=== PATIENT | male | born 1950 | race Caucasian/White ===

== ENCOUNTER 2018-09-19 21:09 | Inpatient (IN) | payer MEDICARE, MEDICAID ==
[~2018-09-19] VITALS: Ht 175.3 cm; Wt 99.8 kg
[2018-09-19 21:13] VITALS: BP 150/52
[2018-09-19] MEDS ORDERED: SINEMET 25-1001 EAC1 PO (21:19)
[2018-09-19] MEDS ORDERED: PLAVIX 75 MG TA75 M1 PO (21:21)
[2018-09-19] MEDS ORDERED: VALIUM5 MG PO (21:22)
[2018-09-19] MEDS ORDERED: PEPCID20 MG PO (21:22)
[2018-09-19] MEDS ORDERED: LISINOPRIL10 MG PO (21:22)
[2018-09-19] MEDS ORDERED: MELATONIN3 MG PO (21:23)
[2018-09-19] MEDS ORDERED: OLANZAPINE20 MG PO (21:24)
[2018-09-19] MEDS ORDERED: METFORMIN HCL500 MG PO (21:24)
[2018-09-19] MEDS ORDERED: PIOGLITAZONE30 MG PO (21:25)
[2018-09-19] MEDS ORDERED: SENNA8.6 MG PO (21:25)
[2018-09-19] MEDS ORDERED: MIRALAX17 GM PO (21:25)
[2018-09-19] MEDS ORDERED: THEREMS1 EAC1 PO (21:26)
[2018-09-19] MEDS ORDERED: ZOLOFT25 MG PO (21:26)
[2018-09-19] MEDS ORDERED: AMBIEN 5 MG TABL5 M1 PO (21:27)
[2018-09-19] MEDS ORDERED: VITAMIN D3400 UNIT PO (21:27)
[2018-09-19 21:42] LABS: ABSOLUTE EOSINOPHILS 0.2 thou/uL (0.0-0.7); ABSOLUTE LYMPHOCYTES 1.3 thou/uL (0.8-5.3); ABSOLUTE MONOCYTES 0.7 thou/uL (0.0-1.2); ABSOLUTE NEUTROPHILS 4.1 thou/uL (1.6-8.1); BASOPHILS 0.7 %; EOSINOPHILS 2.6 %; HEMATOCRIT 27.4 % (42.0-52.0); HEMOGLOBIN 9.4 gm/dL (14.0-18.0); LYMPHOCYTES 20.1 %; MCH 31.8 pg (26.0-34.0); MCHC 34.2 g/dL (28.0-37.0); MCV 92.7 fL (80.0-100.0); MONOCYTES 10.9 %; MPV 7.2 fl. (7.2-11.1); NUCLEATED RBCS 0 /100WBC; PLATELET COUNT* 278 thou/uL (150-400); POLYS 65.7 %; RBC 2.96 mil/uL (4.50-6.00); RDW-CV 13.3 % (10.5-14.5); WBC 6.3 thou/uL (4.0-11.0)
[2018-09-19 21:45] LABS: CALCIUM 8.2 mg/dL (8.5-10.1); CREATININE 1.4 mg/dL (0.6-1.3); POTASSIUM 4.6 mmol/L (3.5-5.1)
[2018-09-19 21:50] LABS: TOTAL BILIRUBIN 0.2 mg/dL (<0.1-1.0); TOTAL PROTEIN 6.7 g/dL (6.4-8.2)
[2018-09-19 22:01] LABS: URINE BILIRUBIN 1+ (Negative); URINE BLOOD 3+ (Negative); URINE CLARITY CLOUDY; URINE COLOR YELLOW; URINE GLUCOSE-RANDOM NEGATIVE (Negative); URINE KETONES NEGATIVE (Negative); URINE LEUKOCYTES-REFLEX 2+ (Negative); URINE NITRITE-REFLEX POSITIVE (Negative); URINE PROTEIN 3+ (Negative); URINE SPECIFIC GRAVITY >= 1.030 (1.005-1.030); URINE UROBILINOGEN 0.2 E.U./dl (0.2-1.0)
[2018-09-19 22:07] LABS: BACTERIA-REFLEX >30 Many /HPF (None Seen); SQUAMOUS NONE SEEN /LPF (0-3); URINE RBC >20 Many /HPF (0-2)
[2018-09-19 22:10] LABS: URINE WBC-REFLEX >25 Many /HPF (0-5)
[2018-09-19 22:11] LABS: CRYSTALS None Seen /LPF (None Seen); HYALINE CASTS 0-3 Few /LPF (None Seen); MUCUS None Seen strn/LPF (None Seen)
[2018-09-19 23:29] VITALS: BP 151/51
--- NOTE | 2018-09-20 00:04 | NUR ---
PT ARRIVED ON UNIT FROM ER AROUND 2340. ASSESSMENT COMPLETE. VITALS STABLE. BP 159/70, P 70, TEMP 98.2, OX 95% ON RA. PT RESTING IN BED. FALL PRECAUTIONS IN PLACE. CALL LIGHT IN REACH. WILL CONTINUE TO MONITOR.
--- NOTE | 2018-09-20 04:36 | NUR ---
PT REMAINED A&Ox4 THROUGHOUT SHIFT. IV IN L FA PATENT, INFUSING. CATHETER PATENT AND LEG BAG DRAINED, OUTPUT CHARTED. URINE WENT FROM DARK YELLOW UPON ARRIVING TO NOW LIGHT YELLOW. DENIED PAIN. DENIED NAUSEA. AMBIEN ORDERED DUE TO PT STATING THAT HE CANNOT SLEEP WITHOUT IT. RESTING IN BED PEACEFULLY. FALL PRECAUTIONS IN PLACE. HOURLY ROUNING COMPLETE. CALL LIGHT WITHIN REACH. WILL CONTINUE TO MONITOR.
[2018-09-20 08:00] VITALS: BP 167/74
[2018-09-20 13:36] LABS: CALCIUM 8.2 mg/dL (8.5-10.1); CREATININE 1.3 mg/dL (0.6-1.3); POTASSIUM 4.8 mmol/L (3.5-5.1)
[2018-09-20 14:09] LABS: % SATURATION 25 % (20-39); IRON 59 ug/dL (50-175)
[2018-09-20 15:24] VITALS: BP 144/72
--- NOTE | 2018-09-20 16:31 | NUR ---
PT IS ALERT AND ORIENTED X 4. IVF INFUSING @ 100 MLS/HR. PT RECEIVED IV ZOFRAN AND MORPHINE FOR LOWER ABDOMINAL PAIN AND NAUSEA. SCDS ON BILAT. PT HAS SUPRAPUBIC CATHETER WHICH WAS CHANGED OUT BY LYNDA FROM UROLOGY THIS AFTERNOON @ 1630. REFUSED SLIDING SCALE INSULIN FOR ACCUCHECK OF 127. PT REFUSED TO GET UP TO CHAIR DURING DAY. HOURING ROUNDS MAINTAINED. PT WILL USE CALL LIGHT FOR ASSISTANCE. CALL LIGHT WITHIN REACH.
--- NOTE | 2018-09-20 17:15 | NUR ---
SPOKE TO THE PATIENT TO DISCUSS HIS HOME SITUAON, DISCHARGE PLANNING, AND TO INFORM OF THE ROLE OF CM. PATIENT RESIDES AT [facility]. PATIENT ALERT, ORIENTED, AND INDEPENDENT WITH ADL'S. PATIENT USES 0 DME. PATIENT PLANS TO RETURN TO [facility] AT D/C. D/C LEAD HOUSEKEEPER SPOKE JEANNIE TIMMONS TO DISCUSS PATIENT. IAIN INFORMS THAT THE PATIENT HAS LIVED IN THE FACILITY FOR 4 YEARS, AND WILL ACCPET THE PATIENT BACK TO THE FACILITY AT D/C. IAIN ALSO CONFIRMS THAT THE PATIENT DOES NOT USE ANY DME FOR MOBILITY. CM WILL REMAIN AVAILABLE TO ASSIST AND FOLLOW NEEDED.
[2018-09-20 19:11] LABS: GLYCOHEMOGLOBIN (HGB A1C) 6.6 % (4.8-5.6)
[2018-09-20 19:23] LABS: URINE BILIRUBIN NEGATIVE (Negative); URINE BLOOD 3+ (Negative); URINE COLOR YELLOW; URINE GLUCOSE-RANDOM NEGATIVE (Negative); URINE KETONES NEGATIVE (Negative); URINE NITRITE-REFLEX NEGATIVE (Negative); URINE PROTEIN 2+ (Negative); URINE SPECIFIC GRAVITY 1.025 (1.005-1.030); URINE UROBILINOGEN 0.2 E.U./dl (0.2-1.0)
[2018-09-20 19:24] LABS: URINE CLARITY HAZY; URINE LEUKOCYTES-REFLEX 2+ (Negative)
[2018-09-20 19:36] LABS: SQUAMOUS 0-3 Few /LPF (0-3)
[2018-09-20 19:37] LABS: URINE RBC >20 Many /HPF (0-2); URINE WBC-REFLEX >25 Many /HPF (0-5)
[2018-09-20 19:38] LABS: AMORPHOUS URATES Few /LPF (None Seen); BACTERIA-REFLEX 1-9 Few /HPF (None Seen); CASTS None Seen /LPF (None Seen)
[2018-09-20 21:50] VITALS: BP 137/57
--- NOTE | 2018-09-21 04:31 | NUR ---
PT REMAINED A&Ox4 THROUGHOUT SHIFT. CODE STATUS CHANGED TO DNR PER PT REQUEST, ORDERED BY [facility]. DENIED INSULIN FOR BG LEVEL OF 115. IV IN L FA PATENT, INFUSING. CATHETER REMAINS PATENT, URINE LIGHT YELLOW. UP WITH A STAND BY ASSIST. PAIN CONTROLLED WITH MORPHINE. SLEPT WELL THROUGHOUT THE NIGHT. FALL PRECAUTIONS IN PLACE. HOURLY ROUNDING COMPLETE. CALL LIGHT WITHIN REACH. WILL CONTINUE TO MONITOR.
[2018-09-21 04:38] LABS: HEMOGLOBIN 9.8 gm/dL (14.0-18.0); MCH 31.7 pg (26.0-34.0); MCHC 33.7 g/dL (28.0-37.0); MCV 94.1 fL (80.0-100.0); MPV 7.2 fl. (7.2-11.1); RBC 3.08 mil/uL (4.50-6.00); WBC 6.1 thou/uL (4.0-11.0)
[2018-09-21 04:45] LABS: CALCIUM 8.4 mg/dL (8.5-10.1); CREATININE 1.3 mg/dL (0.6-1.3); POTASSIUM 4.7 mmol/L (3.5-5.1)
[2018-09-21 07:20] VITALS: BP 149/52
[2018-09-21] MEDS ORDERED: CEFUROXIME250 MG PO (08:00)
[2018-09-21 09:43] VITALS: BP 149/52
--- NOTE | 2018-09-21 09:54 | NUR ---
Pt discharging back to [facility] today, [facility] will corn picker between . Updated [facility] and faxed dc orders. Chart copied. Nurse report number provided, [phone]. CM attempted to contact both brothers that are listed as emergency contacts, one phone did not have a VM and the other was a females voice, so no message was left.
--- NOTE | 2018-09-21 11:54 | NUR ---
ASSUMED CARE OF PATIENT AT APPROX 0720. ALERT AND ORIENTED X4. ASSESSMENT COMPLETED AND CHARTED. VSS ON ROOM AIR. NO COMPLAINTS OF PAIN, NAUSEA, OR SOA. DR TODD SPOKE WITH PATIENT ABOUT DISCHARGING HIM TODAY. PATIENT HAS LOTS OF ANXIETY AND CALLED OUT ABOUT EVERY 20 MINUTES STATING THAT HE DID NOT WANT TO GO HOME TODAY AND WOULD RATHER STAY ANOTHER DAY. PATIENT BECAME ANGRY AND RUDE WHEN HE WAS INFORMED THAT HE WAS GOING HOME TODAY AND THE DOCTOR HAD NO CHANGED HIS MIND. PATIENT STATED THAT HE COULD NOT GO HOME BECAUSE HE HAD NOT BEEN UP IN 2 DAYS BECAUSE NO ONE WOULD GET HIM UP, PATIENT HAS BEEN REFUSING TO GET UP WHEN STAFF HAD TRIED. THIS NURSE ASKED WHY HE WAS AFRAID TO GO HOME, WHICH IS A [facility] FACILITY WHERE HE WOULD HAVE PLENTY OF HELP. HE SIMPLY STYATED BECAUSE HE HAD NOT BEEN UP HERE. THIS NURSE AND AN AID GOT THE PATIENT UP AND DRESSED WITH MINIMAL ASSISTANCE NEEDED, HE DID NOT CALL OUT AGAIN NCE HE WAS UP. PATIENT DISCHARGED AT 1145 BACK TO SKILLED FACILITY, TRANSPORT VIA WHEELCHAIR VAN. TOOK ALL PERSONAL BELONGINGS AND SICHARGE PACKET WITH SCRIPT.
== END 2018-09-21 11:45 | DRG 689 ==
LOC: M.ERS 21:09 → M.ORTHSURG 22:34 → M.TBA-ER 22:34 → M.ORTHSURG 23:35
PROVIDERS: Emergency Medicine; Internal Medicine; ADMIT Internal Medicine
DX: N30.90 Cystitis, unspecified without hematuria (principal); N17.0 Acute kidney failure with tubular necrosis; E87.1 Hypo-osmolality and hyponatremia; E44.0 Moderate protein-calorie malnutrition; G20 Parkinson's disease; F41.1 Generalized anxiety disorder; F32.9 Major depressive disorder, single episode, unspecified; E11.9 Type 2 diabetes mellitus without complications; I10 Essential (primary) hypertension; K59.00 Constipation, unspecified; G47.00 Insomnia, unspecified; H53.11 Day blindness; K21.9 Gastro-esophageal reflux disease without esophagitis; F17.210 Nicotine dependence, cigarettes, uncomplicated; D63.8 Anemia in other chronic diseases classified elsewhere; R33.8 Other retention of urine; Z68.32 Body mass index [BMI] 32.0-32.9, adult; Z79.899 Other long term (current) drug therapy

== ENCOUNTER 2019-05-30 05:40 | Emergency (ER) | payer MEDICARE, MEDICAID ==
[~2019-05-30] VITALS: Ht 175.3 cm; Wt 99.8 kg
[~2019-05-30 05:40] MED LIST: AMBIEN 5 MG TABL5 M1 PO; CEFUROXIME250 MG PO; LISINOPRIL10 MG PO; MELATONIN3 MG PO; METFORMIN HCL500 MG PO; MIRALAX17 GM PO; OLANZAPINE20 MG PO; PEPCID20 MG PO; PIOGLITAZONE30 MG PO; PLAVIX 75 MG TA75 M1 PO; SENNA8.6 MG PO; SINEMET 25-1001 EAC1 PO; THEREMS1 EAC1 PO; VALIUM5 MG PO; VITAMIN D3400 UNIT PO; ZOLOFT25 MG PO
[2019-05-30] MEDS ORDERED: DEPAKOTE500 MG PO (05:48)
[2019-05-30] MEDS ORDERED: OXYBUTYNIN 5 MG5 M2 PO (05:48)
[2019-05-30] MEDS ORDERED: APAP650 PO (05:49)
[2019-05-30] MEDS ORDERED: VITAMIN B-121000 MC3 PO (05:50)
[2019-05-30 06:06] LABS: ABSOLUTE EOSINOPHILS 0.3 thou/uL (0.0-0.7); ABSOLUTE LYMPHOCYTES 1.6 thou/uL (0.8-5.3); ABSOLUTE MONOCYTES 0.5 thou/uL (0.0-1.2); ABSOLUTE NEUTROPHILS 2.3 thou/uL (1.6-8.1); BASOPHILS 0.8 %; EOSINOPHILS 6.3 %; HEMATOCRIT 32.5 % (42.0-52.0); HEMOGLOBIN 10.8 gm/dL (14.0-18.0); MCH 31.7 pg (26.0-34.0); MCHC 33.1 g/dL (28.0-37.0); MCV 95.8 fL (80.0-100.0); MONOCYTES 10.7 %; MPV 7.6 fl. (7.2-11.1); NUCLEATED RBCS 0 /100WBC; PLATELET COUNT* 221 thou/uL (150-400); POLYS 49.2 %; RBC 3.39 mil/uL (4.50-6.00); RDW-CV 13.7 % (10.5-14.5); WBC 4.8 thou/uL (4.0-11.0)
[2019-05-30 06:26] LABS: CALCIUM 8.6 mg/dL (8.5-10.1); CREATININE 1.5 mg/dL (0.6-1.3); POTASSIUM 5.2 mmol/L (3.5-5.1)
[2019-05-30 06:31] LABS: ALBUMIN 3.3 g/dL (3.4-5.0); TOTAL BILIRUBIN 0.2 mg/dL (<0.1-1.0); TOTAL PROTEIN 6.9 g/dL (6.4-8.2)
[2019-05-30 08:40] VITALS: BP 193/69
--- NOTE | 2019-05-30 10:44 | EKG ---
[place] [address] ELECTROCARDIOGRAM REPORT Name: NAIN GRANT [id number] Admission: 05/30/19 Attend Phys: Discharge: 05/30/19 Date of : 52 Report #: [id number] THIS REPORT FOR: //name// [facility] ED Test Date: 2019-05-30 Test Time: 05:57:16 Pat Name: NAIN GRANT Department: Room: Gender: M Recordist: ANDRESSA : 1950 Requested By: Jose Rafael Hurley Order Number: [id number] MD: Ke Morales Measurements Intervals [place] Rate: 57 P: 5 GA: 218 QRS: -2 QRSD: 92 T: 62 QT: 426 QTc: 415 Interpretive Statements Sinus rhythm Borderline prolonged GA interval Baseline wander in lead(s) V2 No previous ECG available for comparison Electronically Signed On 05-30-2019 10:43:43 CDT by Ke Morales [email or web address] <ELECTRONICALLY SIGNED> By: Ke Morales MD, [facility] 05/30/19 [phone] [id number] Ke Morales MD, FACC /EPI
== END 2019-05-30 08:40 | disposition home or self-care (01) ==
LOC: M.ERS 05:40
PROVIDERS: Family Medicine
DX: E87.5 Hyperkalemia (principal); G20 Parkinson's disease; I10 Essential (primary) hypertension; E11.9 Type 2 diabetes mellitus without complications; G47.00 Insomnia, unspecified; K21.9 Gastro-esophageal reflux disease without esophagitis; Z86.2 Personal history of diseases of the blood and blood-forming organs and certain disorders involving the immune mechanism

== ENCOUNTER 2019-06-12 03:51 | Inpatient (IN) | payer MEDICARE, MEDICAID ==
[~2019-06-12] VITALS: Ht 175.3 cm; Wt 97.5 kg
[~2019-06-12 03:51] MED LIST changes: +APAP650 PO; +DEPAKOTE500 MG PO; +OXYBUTYNIN 5 MG5 M2 PO; +VITAMIN B-121000 MC3 PO
[2019-06-12 03:53] VITALS: BP 150/56
[2019-06-12] MEDS ORDERED: SERTRALINE HCL100 MG PO (04:08)
[2019-06-12 04:25] LABS: URINE BILIRUBIN NEGATIVE (Negative); URINE BLOOD 3+ (Negative); URINE COLOR DARK YELLOW; URINE GLUCOSE-RANDOM NEGATIVE (Negative); URINE KETONES TRACE (Negative); URINE NITRITE-REFLEX NEGATIVE (Negative); URINE PROTEIN 3+ (Negative); URINE SPECIFIC GRAVITY 1.025 (1.005-1.030); URINE UROBILINOGEN 0.2 E.U./dl (0.2-1.0)
[2019-06-12 04:26] LABS: URINE CLARITY SL CLOUDY; URINE LEUKOCYTES-REFLEX 2+ (Negative)
[2019-06-12 04:27] LABS: AMORPHOUS URATES Moderate /LPF (None Seen); BACTERIA-REFLEX >30 Many /HPF (None Seen); HYALINE CASTS 0-3 Few /LPF (None Seen); MUCUS 4-6 Moderate strn/LPF (None Seen); SQUAMOUS 0-3 Few /LPF (0-3); URINE RBC >20 Many /HPF (0-2); URINE WBC-REFLEX >25 Many /HPF (0-5); WBC CLUMPS Few (None Seen); YEAST-REFLEX Present (None Seen)
[2019-06-12 04:58] LABS: ABSOLUTE EOSINOPHILS 0.3 thou/uL (0.0-0.7); ABSOLUTE LYMPHOCYTES 1.8 thou/uL (0.8-5.3); ABSOLUTE MONOCYTES 0.7 thou/uL (0.0-1.2); ABSOLUTE NEUTROPHILS 2.6 thou/uL (1.6-8.1); BASOPHILS 0.9 %; EOSINOPHILS 6.3 %; HEMATOCRIT 28.3 % (42.0-52.0); HEMOGLOBIN 9.6 gm/dL (14.0-18.0); LYMPHOCYTES 32.7 %; MCH 32.1 pg (26.0-34.0); MCHC 33.7 g/dL (28.0-37.0); MCV 95.3 fL (80.0-100.0); MONOCYTES 12.1 %; MPV 7.3 fl. (7.2-11.1); NUCLEATED RBCS 0 /100WBC; PLATELET COUNT* 220 thou/uL (150-400); RBC 2.97 mil/uL (4.50-6.00); RDW-CV 13.3 % (10.5-14.5); WBC 5.5 thou/uL (4.0-11.0)
[2019-06-12 05:09] LABS: CALCIUM 8.3 mg/dL (8.5-10.1); CREATININE 1.6 mg/dL (0.6-1.3); POTASSIUM 4.5 mmol/L (3.5-5.1)
[2019-06-12 05:14] LABS: ALBUMIN 3.1 g/dL (3.4-5.0); TOTAL BILIRUBIN 0.2 mg/dL (<0.1-1.0); TOTAL PROTEIN 6.6 g/dL (6.4-8.2)
[2019-06-12 05:43] VITALS: BP 150/56
[2019-06-12 05:50] VITALS: BP 117/66
[2019-06-12 09:41] VITALS: BP 102/66
[2019-06-12 15:52] VITALS: BP 147/47
[2019-06-12 19:40] VITALS: BP 170/63
[2019-06-13 05:23] LABS: HEMOGLOBIN 9.9 gm/dL (14.0-18.0); MCH 31.8 pg (26.0-34.0); MCV 96.3 fL (80.0-100.0); MPV 7.9 fl. (7.2-11.1); RBC 3.11 mil/uL (4.50-6.00); RDW-CV 13.4 % (10.5-14.5); WBC 5.1 thou/uL (4.0-11.0)
[2019-06-13 05:42] LABS: CALCIUM 8.2 mg/dL (8.5-10.1); CREATININE 1.3 mg/dL (0.6-1.3); MAGNESIUM 1.9 mg/dL (1.8-2.4)
[2019-06-13 11:22] VITALS: BP 167/66
[2019-06-13 16:00] VITALS: BP 149/55
[2019-06-13 19:50] VITALS: BP 163/73
[2019-06-14] MEDS ORDERED: LEVSIN-SL0.125 MG SUBLING (09:15)
[2019-06-14] MEDS ORDERED: CEFUROXIME500 MG PO (09:15)
[2019-06-14] MEDS ORDERED: CULTURELLE KID1 EAC1 PO (09:15)
[2019-06-14 13:35] VITALS: BP 173/65
[2019-06-14 15:40] LABS: URINE BILIRUBIN NEGATIVE (Negative); URINE BLOOD 3+ (Negative); URINE CLARITY CLEAR; URINE COLOR YELLOW; URINE GLUCOSE-RANDOM NEGATIVE (Negative); URINE KETONES NEGATIVE (Negative); URINE LEUKOCYTES 3+ (Negative); URINE NITRITE NEGATIVE (Negative); URINE PROTEIN NEGATIVE (Negative); URINE UROBILINOGEN 0.2 E.U./dl (0.2-1.0)
[2019-06-14 15:50] LABS: MUCUS None Seen strn/LPF (None Seen); SQUAMOUS NONE SEEN /LPF (0-3)
[2019-06-14 15:51] LABS: CASTS None Seen /LPF (None Seen); URINE WBC >25 Many /HPF (0-5)
[2019-06-14 15:52] LABS: BACTERIA 1-9 Few /HPF (None Seen); CRYSTALS None Seen /LPF (None Seen)
[2019-06-14 15:53] LABS: URINE RBC 3-10 Few /HPF (0-2); YEAST Present (None Seen)
[2019-06-14] MEDS ORDERED: PYRIDIUM200 MG PO (16:24)
[2019-06-14 16:46] VITALS: BP 173/65
== END 2019-06-14 16:47 | DRG 699 ==
LOC: M.ERS 03:51 → M.TBA-ER 05:07 → M.3W 05:07
PROVIDERS: Emergency Medicine; Internal Medicine; ADMIT Internal Medicine
PROC: 0TPB70Z Removal of Drainage Device from Bladder, Via Natural or Artificial Opening (ICD-10-PCS; principal; 2019-06-12)
DX: T83.510A Infection and inflammatory reaction due to cystostomy catheter, initial encounter (principal); E44.1 Mild protein-calorie malnutrition; N39.0 Urinary tract infection, site not specified; I69.354 Hemiplegia and hemiparesis following cerebral infarction affecting left non-dominant side; T83.090A Other mechanical complication of cystostomy catheter, initial encounter; G20 Parkinson's disease; F41.1 Generalized anxiety disorder; G47.00 Insomnia, unspecified; K21.9 Gastro-esophageal reflux disease without esophagitis; R31.9 Hematuria, unspecified; E11.22 Type 2 diabetes mellitus with diabetic chronic kidney disease; N18.3 Chronic kidney disease, stage 3 (moderate); I12.9 Hypertensive chronic kidney disease with stage 1 through stage 4 chronic kidney disease, or unspecified chronic kidney disease; F17.210 Nicotine dependence, cigarettes, uncomplicated; Y84.6 Urinary catheterization as the cause of abnormal reaction of the patient, or of later complication, without mention of misadventure at the time of the procedure; N31.9 Neuromuscular dysfunction of bladder, unspecified; R53.81 Other malaise; E11.69 Type 2 diabetes mellitus with other specified complication; F02.80 Dementia in other diseases classified elsewhere, unspecified severity, without behavioral disturbance, psychotic disturbance, mood disturbance, and anxiety; F31.9 Bipolar disorder, unspecified; B95.7 Other staphylococcus as the cause of diseases classified elsewhere; N40.0 Benign prostatic hyperplasia without lower urinary tract symptoms; Z79.899 Other long term (current) drug therapy; Y92.89 Other specified places as the place of occurrence of the external cause; Z68.31 Body mass index [BMI] 31.0-31.9, adult

== ENCOUNTER 2020-01-24 20:48 | Inpatient (IN) | payer MEDICARE, MEDICAID ==
[~2020-01-24] VITALS: Ht 175.3 cm; Wt 99.3 kg
[~2020-01-24 20:48] MED LIST changes: +CEFUROXIME500 MG PO; +CULTURELLE KID1 EAC1 PO; +LEVSIN-SL0.125 MG SUBLING; +PYRIDIUM200 MG PO; +SERTRALINE HCL100 MG PO
[2020-01-24 20:49] VITALS: BP 144/81
[2020-01-24] MEDS ORDERED: LIPITOR10 MG PO (21:00)
[2020-01-24] MEDS ORDERED: KRISTALOSE20 GM PO (21:03)
[2020-01-24] MEDS ORDERED: LISINOPRIL2.5 MG PO (21:04)
[2020-01-24] MEDS ORDERED: PROTONIX 20 MG20 MG PO (21:08)
[2020-01-24 21:27] LABS: ABSOLUTE LYMPHOCYTES 0.6 thou/uL (0.8-5.3); ABSOLUTE MONOCYTES 0.4 thou/uL (0.0-1.2); ABSOLUTE NEUTROPHILS 5.2 thou/uL (1.6-8.1); BASOPHILS 0.2 %; EOSINOPHILS 0.2 %; HEMOGLOBIN 10.6 gm/dL (14.0-18.0); MCH 33.4 pg (26.0-34.0); MCHC 34.1 g/dL (28.0-37.0); MCV 97.9 fL (80.0-100.0); MONOCYTES 6.9 %; MPV 8.3 fl. (7.2-11.1); NUCLEATED RBCS 0 /100WBC; PLATELET COUNT* 202 thou/uL (150-400); POLYS 82.7 %; RBC 3.17 mil/uL (4.50-6.00); RDW-CV 13.9 % (10.5-14.5); WBC 6.2 thou/uL (4.0-11.0)
[2020-01-24 21:36] LABS: CALCIUM 7.9 mg/dL (8.5-10.1); CREATININE 1.6 mg/dL (0.6-1.3)
[2020-01-24 21:38] LABS: INR 1.1; PROTIME 11.3 Seconds (9.20-11.50)
[2020-01-24 21:47] LABS: ALBUMIN 3.4 g/dL (3.4-5.0); MAGNESIUM 3.5 mg/dL (1.8-2.4); TOTAL BILIRUBIN 0.2 mg/dL (<0.1-1.0); TOTAL PROTEIN 7.6 g/dL (6.4-8.2)
--- NOTE | 2020-01-24 21:56 | NUR ---
INCREASED D5 .45 TO 200ML/HR PER DR. REYNAGA.
--- NOTE | 2020-01-24 23:40 | NUR ---
D10 NS 1000ML WAS STARTED AT 150ML/HR PER DR. REYNAGA'S ORDERS. MEDICATION WAS NOT ABLE TO BE SCANNED
[2020-01-25] VITALS (22 sets, daily range): BP systolic 97–157; BP diastolic 43–66
[2020-01-25 00:10] LABS: BE -0.9 mmol/L (-2 to +3); PCO2 49.1 mmHg (35.0-45.0); PO2 91.4 mmHg (75.0-100.0)
[2020-01-25 02:31] LABS: CALCIUM 7.7 mg/dL (8.5-10.1); CREATININE 1.4 mg/dL (0.6-1.3); POTASSIUM 4.7 mmol/L (3.5-5.1)
--- NOTE | 2020-01-25 06:00 | NUR ---
PATIENT ARRIVED ON UNIT AT APPROX 0115. ALERT AND ORIENTED TIMES FOUR. CRANKY AND STATED THAT HE IS GOING HOME IN THE AM. NO COMPLAINTS OF PAIN OR DISCOMFORT NOTED. REMAINS ACCUCHECK QH R/T UNSTABLE BLOOD GLUCOSE. UNABLE TO TITRATE D10NS BLOOD GLUCOSE CONTINUES TO DROP. SWITCHBOARD INSPECTOR ASSESSMENT COMPLETED CHARTED. WILL CONTINUE TO MONITOR
[2020-01-25 06:01] LABS: CALCIUM 7.4 mg/dL (8.5-10.1); CREATININE 1.2 mg/dL (0.6-1.3); POTASSIUM 4.6 mmol/L (3.5-5.1)
[2020-01-25 09:51] LABS: URINE BLOOD TRACE (Negative); URINE CLARITY CLEAR; URINE COLOR STRAW; URINE GLUCOSE-RANDOM NEGATIVE (Negative); URINE KETONES NEGATIVE (Negative); URINE LEUKOCYTES 3+ (Negative); URINE NITRITE POSITIVE (Negative); URINE PROTEIN NEGATIVE (Negative); URINE SPECIFIC GRAVITY <= 1.005 (1.005-1.030); URINE UROBILINOGEN 0.2 E.U./dl (0.2-1.0)
[2020-01-25 09:53] LABS: ICTOTEST (BILI CONFIRMATORY) Negative (Negative); URINE BILIRUBIN 1+ (Negative)
[2020-01-25 09:59] LABS: SQUAMOUS 0-3 Few /LPF (0-3); WBC CLUMPS Few (None Seen)
[2020-01-25 10:00] LABS: CASTS None Seen /LPF (None Seen); MUCUS None Seen strn/LPF (None Seen); URINE RBC 0-2 Rare /HPF (0-2)
[2020-01-25 10:01] LABS: CRYSTALS None Seen /LPF (None Seen)
--- NOTE | 2020-01-25 11:09 | EKG ---
[place] [address] ELECTROCARDIOGRAM REPORT Name: NAIN GRANT Room: [address] ADM IN M.R.#: [id number] Admission: 01/24/20 Attend Phys: Paul Jerez, Discharge: Date of : 52 Date of Service: 01/24/202046 Report #: [id number] THIS REPORT FOR: //name// [facility] ED Test Date: 2020-01-24 Test Time: 20:47:59 Pat Name: NAIN GRANT Department: Room: [facility] Gender: M Independent Freight Agent: [place] : 1950 Requested By: Eleanor Jamison Order Number: [id number] MD: Jatinder Cesar Measurements Intervals [place] Rate: 76 P: 31 MT: 210 QRS: 6 QRSD: 103 T: 35 QT: 401 QTc: 451 Interpretive Statements Sinus rhythm Compared to ECG 05/30/2019 05:57:16 No significant changes Electronically Signed On 01-25-2020 11:07:16 CDT by Jatinder Cesar [email or web address] <ELECTRONICALLY SIGNED> By: Jatinder Cesar MD, [facility] 01/25/20 1107 46 46 Jatinder Cesar MD, [facility] /EPI
--- NOTE | 2020-01-25 18:29 | NUR ---
pt progressed toward goals during shift after 4 amps of D50 onetime im glucagon and d10 running at 150ml sugars have maintained in the lower 100s pt stated he felt much better than this morning consumer all of lunch and dinner ready to go home he states covid still pending
[2020-01-26] VITALS (13 sets, daily range): BP systolic 94–159; BP diastolic 44–61
[2020-01-26 03:22] LABS: ABSOLUTE EOSINOPHILS 0.2 thou/uL (0.0-0.7); ABSOLUTE LYMPHOCYTES 2.1 thou/uL (0.8-5.3); ABSOLUTE MONOCYTES 0.9 thou/uL (0.0-1.2); ABSOLUTE NEUTROPHILS 4.9 thou/uL (1.6-8.1); BASOPHILS 0.4 %; EOSINOPHILS 2.5 %; HEMATOCRIT 30.1 % (42.0-52.0); HEMOGLOBIN 10.3 gm/dL (14.0-18.0); MCH 33.2 pg (26.0-34.0); MCV 97.6 fL (80.0-100.0); MONOCYTES 10.7 %; MPV 8.7 fl. (7.2-11.1); NUCLEATED RBCS 0 /100WBC; PLATELET COUNT* 191 thou/uL (150-400); POLYS 60.4 %; RBC 3.09 mil/uL (4.50-6.00); RDW-CV 14.1 % (10.5-14.5); WBC 8.1 thou/uL (4.0-11.0)
[2020-01-26 03:29] LABS: CALCIUM 7.1 mg/dL (8.5-10.1); CREATININE 1.5 mg/dL (0.6-1.3); POTASSIUM 5.3 mmol/L (3.5-5.1)
[2020-01-26 04:07] LABS: GLYCOHEMOGLOBIN (HGB A1C) 5.8 % (4.8-5.6)
--- NOTE | 2020-01-26 06:19 | NUR ---
ASSUMED PATIENT CARE AT 1900. PATIENT ALERT AND ORIENTED TIMES FOUR. NO COMPLAINTS OF PAIN OR DISCOMFORT NOTED. HUMID SYSTEM OPERATOR COMPLETED DOCUMENTED. BLOOD SUGARS STAYED IN THE LOW HUNDREDS UNTIL NOVROX 419 AT WHICH TIME HE IS STARTING TO TREND DOWN AGAIN. D10 FLUIDS CONTINUE TO RUN AT 150ML/HR. VALIUM NOT GIVEN PATIENT WAS LETHARGIC THROUGHOUT SHIFT.
--- NOTE | 2020-01-26 10:21 | NUR ---
PT PROGRESSED TOWARD GOALS DOWNGRADED TO [place] TRANSFERRED TO ROOM 212 VIA WHEELCHAIR BY NURSING STAFF ALL BELONGINGS PACKED AND SENT WITH PATIENT WALLET IN PATIENTS BACK POCKET REFUSES TO GIVE TO SECRUITY WANTS TO KEEP IT ON HIM
--- NOTE | 2020-01-26 15:46 | NUR ---
ICU rounds: Pt out of ICU today, tele status. Pt is a LTC resident at [facility] and plans to return at [facility]. CM spoke with Anai at [facility], they are able to accept Pt at dc. Independent. No DME. Following.
--- NOTE | 2020-01-26 18:00 | NUR ---
RECEIVED REPORT FROM BELIA IN ICU. PT ARRIVED TO TELE FLOOR AROUND 1025. PT A&O X4. THIS RN AGREES WITH THE ASSESSMENT AND CHARTING OF BELIA DHILLON. HOUSE MOVER SUPERVISOR PLACED TRACING CHARTED. PT WITH GOOD APPETITE. BLOOD GLUCOSE CHECKS Q2HRS, STABALIZING. JANSEN IN PLACE TO DD. PT DENIED PAIN OR DISCOMFORT THIS SHIFT. MEDS PER EMAR. PT CURRENTLY RESTING IN BED WATCHING TV. FALL PRECAUTIONS IN PLACE. HOURLY ROUNDING PERFORMED. CALL LIGHT WITHIN REACH.
--- NOTE | 2020-01-27 04:20 | NUR ---
ASSUMED PT CARE AT 1910. NURSING ASSESSMENT COMPLETED AT START OF SHIFT. PT TRACING SR ON BELT WORKER. PT VOICED NO CONCERNS THIS SHIFT. SUPRAPUBIC JANSEN IN PLACE. UP TO BSC X2 ASSIST WITH GAITBELT THIS SHIFT. HOURLY ROUNDING COMPLETED.Q2H REPOSITIONING COMPLETED. CALL LIGHT WITHIN REACH.
[2020-01-27 04:42] VITALS: BP 132/49
[2020-01-27 06:12] LABS: ABSOLUTE BASOPHILS 0.1 thou/uL (0.0-0.2); ABSOLUTE EOSINOPHILS 0.3 thou/uL (0.0-0.7); ABSOLUTE LYMPHOCYTES 1.7 thou/uL (0.8-5.3); ABSOLUTE MONOCYTES 0.9 thou/uL (0.0-1.2); BASOPHILS 0.9 %; EOSINOPHILS 4.7 %; HEMATOCRIT 26.8 % (42.0-52.0); HEMOGLOBIN 9.2 gm/dL (14.0-18.0); LYMPHOCYTES 24.7 %; MCH 33.6 pg (26.0-34.0); MCHC 34.5 g/dL (28.0-37.0); MCV 97.4 fL (80.0-100.0); MONOCYTES 12.8 %; MPV 8.5 fl. (7.2-11.1); NUCLEATED RBCS 0 /100WBC; PLATELET COUNT* 186 thou/uL (150-400); POLYS 56.9 %; RBC 2.75 mil/uL (4.50-6.00); RDW-CV 13.9 % (10.5-14.5); WBC 6.9 thou/uL (4.0-11.0)
[2020-01-27 06:22] LABS: CALCIUM 7.4 mg/dL (8.5-10.1); CREATININE 1.5 mg/dL (0.6-1.3); POTASSIUM 5.3 mmol/L (3.5-5.1)
--- NOTE | 2020-01-27 07:10 | NUR ---
CHANGE OF SHIFT BESIDE REPORT GIVEN PATIENT SEEN AT BEDSIDE, IN BED ASLEEP ASSUMED PATIENT CARE
[2020-01-27 08:00] VITALS: BP 124/46
--- NOTE | 2020-01-27 09:57 | NUR ---
Pt discharging back to [facility] today, they plan to skill Pt. Awaiting confirmation on grain picker time. Faxed dc orders. Chart copied. Nurse report number is [phone]. CM to update Pt's family.
[2020-01-27 11:30] VITALS: BP 137/48
[2020-01-27 13:07] VITALS: BP 137/48
[2020-01-27] MEDS ORDERED: THEREMS-M1 EACH PO (13:07)
--- NOTE | 2020-01-27 14:10 | NUR ---
PATIENT DISCHARGED TO [facility] DISCHARGE IFORMATION GIVE, ACKNOWLEDGED, COPIES SENT IV AND HEART MONITOR REMOVED PERSONAL BELOGNIGS SENT PATIENT ASSISTED OUT VIA WC VAN REPORT GIVEN TO GIAN AT [facility]
== END 2020-01-27 13:50 | DRG 637 ==
LOC: M.ERS 20:48 → M.TBA-ER 23:05 → M.2W 23:38 → M.ICU 23:38 → M.TBA-ER 23:38 → M.ICU 01-25 00:58 → M.2W 01-26 10:48
PROVIDERS: Emergency Medicine; ADMIT Internal Medicine
DX: E11.649 Type 2 diabetes mellitus with hypoglycemia without coma (principal); G93.41 Metabolic encephalopathy; J18.9 Pneumonia, unspecified organism; E87.1 Hypo-osmolality and hyponatremia; I69.354 Hemiplegia and hemiparesis following cerebral infarction affecting left non-dominant side; N39.0 Urinary tract infection, site not specified; N17.9 Acute kidney failure, unspecified; T38.3X5A Adverse effect of insulin and oral hypoglycemic [antidiabetic] drugs, initial encounter; G20 Parkinson's disease; F41.1 Generalized anxiety disorder; F32.9 Major depressive disorder, single episode, unspecified; G47.00 Insomnia, unspecified; K21.0 Gastro-esophageal reflux disease with esophagitis; I12.9 Hypertensive chronic kidney disease with stage 1 through stage 4 chronic kidney disease, or unspecified chronic kidney disease; E11.22 Type 2 diabetes mellitus with diabetic chronic kidney disease; E83.41 Hypermagnesemia; F17.210 Nicotine dependence, cigarettes, uncomplicated; N31.9 Neuromuscular dysfunction of bladder, unspecified; N18.3 Chronic kidney disease, stage 3 (moderate); Y92.89 Other specified places as the place of occurrence of the external cause; Z03.818 Encounter for observation for suspected exposure to other biological agents ruled out; Z79.84 Long term (current) use of oral hypoglycemic drugs; Z79.899 Other long term (current) drug therapy; Z79.01 Long term (current) use of anticoagulants

== ENCOUNTER 2020-08-16 16:55 | Inpatient (IN) | payer MEDICARE, MEDICAID ==
[~2020-08-16] VITALS: Ht 175.3 cm; Wt 78.4 kg
--- NOTE | ~2020-08-16 | EKG ---
[place] [address] ELECTROCARDIOGRAM REPORT Name: NAIN GRANT Room: [address] ADM IN .R.#: [id number] Admission: 08/16/20 Attend Phys: Louis Damian Discharge: Date of : 52 Date of Service: 08/16/20 1717 Report #: [id number] THIS REPORT FOR: //name// [facility] ED Test Date: 2020-08-16 Test Time: 17:17:06 Pat Name: NAIN GRANT Department: Room: [facility] Gender: M Supervisor Soldering: JARRELL : 1950 Requested By: Dewey Meyer Order Number: [id number] MD: Measurements Intervals [place] Rate: 70 P: 22 AR: 165 QRS: 25 QRSD: 94 T: 26 QT: 427 QTc: 461 Interpretive Statements Sinus rhythm Borderline repolarization abnormality Baseline wander in lead(s) II,III,aVR,aVL,aVF,V1,V2,V3,V4,V5,V6 Compared to ECG 01/24/2020 20:47:59 No significant changes [email or web address] By: 16 16 Epiphany Epiphany, /DICK
[~2020-08-16 16:55] MED LIST changes: +KRISTALOSE20 GM PO; +LIPITOR10 MG PO; +LISINOPRIL2.5 MG PO; +PROTONIX 20 MG20 MG PO; +THEREMS-M1 EACH PO
[2020-08-16 16:57] VITALS: BP 131/52
[2020-08-16] MEDS ORDERED: BACTRIM DS TAB1 EAC1 PO (17:00)
[2020-08-16] MEDS ORDERED: CEFTAZIDIME1 GM IM (17:00)
[2020-08-16] MEDS ORDERED: VITAMIN C500 MG PO (17:00)
[2020-08-16] MEDS ORDERED: TOVIAZ4 M1 PO (17:02)
[2020-08-16 17:21] LABS: ABSOLUTE EOSINOPHILS 0.1 thou/uL (0.0-0.7); ABSOLUTE LYMPHOCYTES 1.6 thou/uL (0.8-5.3); ABSOLUTE MONOCYTES 0.6 thou/uL (0.0-1.2); ABSOLUTE NEUTROPHILS 3.4 thou/uL (1.6-8.1); BASOPHILS 0.8 %; EOSINOPHILS 2.3 %; HEMATOCRIT 28.6 % (42.0-52.0); HEMOGLOBIN 9.5 gm/dL (14.0-18.0); MCH 31.9 pg (26.0-34.0); MCHC 33.2 g/dL (28.0-37.0); MCV 95.8 fL (80.0-100.0); MONOCYTES 9.8 %; MPV 7.3 fl. (7.2-11.1); NUCLEATED RBCS 0 /100WBC; PLATELET COUNT* 279 thou/uL (150-400); POLYS 59.1 %; RBC 2.98 mil/uL (4.50-6.00); RDW-CV 15.1 % (10.5-14.5); WBC 5.8 thou/uL (4.0-11.0)
[2020-08-16 17:33] LABS: CALCIUM 8.3 mg/dL (8.5-10.1); CREATININE 1.6 mg/dL (0.6-1.3)
[2020-08-16 17:34] LABS: APTT 27.6 Seconds (25.0-31.3); INR 1.1; PROTIME 11.9 Seconds (9.20-11.50)
[2020-08-16 17:44] LABS: ALBUMIN 2.3 g/dL (3.4-5.0); TOTAL BILIRUBIN 0.3 mg/dL (<0.1-1.0); TOTAL PROTEIN 6.2 g/dL (6.4-8.2)
[2020-08-16 17:47] LABS: URINE BILIRUBIN NEGATIVE (Negative); URINE BLOOD NEGATIVE (Negative); URINE CLARITY CLEAR; URINE COLOR YELLOW; URINE GLUCOSE-RANDOM NEGATIVE (Negative); URINE KETONES TRACE (Negative); URINE LEUKOCYTES-REFLEX NEGATIVE (Negative); URINE NITRITE-REFLEX POSITIVE (Negative); URINE PROTEIN TRACE (Negative); URINE SPECIFIC GRAVITY 1.025 (1.005-1.030); URINE UROBILINOGEN 0.2 E.U./dl (0.2-1.0)
[2020-08-16 17:58] LABS: HYALINE CASTS >10 Many /LPF (None Seen)
[2020-08-16 17:59] LABS: URINE RBC 0-2 Rare /HPF (0-2)
[2020-08-16 18:00] LABS: BACTERIA-REFLEX 1-9 Few /HPF (None Seen); MUCUS 0-3 Light strn/LPF (None Seen); SQUAMOUS NONE SEEN /LPF (0-3); URIC ACID CRYSTALS 0-3 Few /LPF (None Seen); URINE WBC-REFLEX 0-5 Rare /HPF (0-5)
[2020-08-16 18:01] LABS: CRYSTALS None Seen /LPF (None Seen)
--- NOTE | 2020-08-16 22:00 | NUR ---
PT REFUSED TO LET ME REMOVE PANTS AND SHOHES, UNABLE TO ASSESS WOUND ON BUTTOCK
[2020-08-16 23:43] VITALS: BP 139/55
[2020-08-17 00:15] VITALS: BP 139/55
[2020-08-17 04:00] VITALS: BP 167/68
--- NOTE | 2020-08-17 04:54 | NUR ---
PT ADMIT TO ROOM 213 AT 0030. ALERT ORIENTED. NIHSS 5. 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 MOVES ALL EXTREMITIES. L SIDE WEAKER THAT RIGHT. DENIES PAIN. TELEMETRY SHOWS SR. PT KEPT NPO FOR SPEACH EVAL. BUTTOCKS AND SCROTAL AREA EXCORIATED. PT RESTING QUIETLY. WCTM
[2020-08-17 08:00] VITALS: BP 123/57
[2020-08-17 09:17] LABS: HEMOGLOBIN 10.5 gm/dL (14.0-18.0); MCH 31.4 pg (26.0-34.0); MCHC 32.9 g/dL (28.0-37.0); MCV 95.5 fL (80.0-100.0); MPV 7.4 fl. (7.2-11.1); RBC 3.35 mil/uL (4.50-6.00); RDW-CV 15.6 % (10.5-14.5)
[2020-08-17 09:21] LABS: CALCIUM 8.3 mg/dL (8.5-10.1); CREATININE 1.5 mg/dL (0.6-1.3); POTASSIUM 3.1 mmol/L (3.5-5.1)
[2020-08-17 09:24] LABS: PHOSPHORUS* 2.5 mg/dL (2.5-4.9)
[2020-08-17 12:00] VITALS: BP 135/67
--- NOTE | 2020-08-17 14:51 | NUR ---
Pt is A&O. Resides at [facility] and plans to return at [facility]. Pt states that he uses wc for mobility and can propel himself. Pt states that his nephew is his primary support sx locally, the rest of his family lives in [place]. CM has a call out to Ema at [facility] to confirm ability to accept Pt back at [facility]. Following.
[2020-08-17 16:00] VITALS: BP 146/65
[2020-08-17 20:00] VITALS: BP 137/60
--- NOTE | 2020-08-17 20:18 | NUR ---
PT RESTING. VSS ON RA. SR ON MONITOR. PT CONTRACTED BLE. PT EDUCATED ON BRIEF USE AND SKIN INTEGRITY. ASSESSMENT CHARTED.NOTHING FURTHER.CLWR.WCTM
[2020-08-18] VITALS: BP 105/42
[2020-08-18 04:00] VITALS: BP 132/53
[2020-08-18 05:00] LABS: ALBUMIN 1.9 g/dL (3.4-5.0); ALKALINE PHOSPHATASE 52 U/L (46-116); ANION GAP 7 mmol/L (7-16); BUN 15 mg/dL (7-18); CALCIUM 8.7 mg/dL (8.5-10.1); CHLORIDE 110 mmol/L (98-107); CHOLESTEROL 139 mg/dL (<200); CO2 28 mmol/L (21-32); CREATININE 1.4 mg/dL (0.6-1.3); GLUCOSE 105 mg/dL (70-99); HDL CHOLESTEROL 40 mg/dL (>40); LDL CHOLESTEROL 82 mg/dL (<100); SGOT 18 U/L (15-37); SGPT < 6 U/L (30-65); SODIUM 145 mmol/L (136-145); TC:HDL 3.5 Ratio (Not establshd); TOTAL BILIRUBIN 0.2 mg/dL (<0.1-1.0); TOTAL PROTEIN 5.3 g/dL (6.4-8.2); TRIGLYCERIDE 88 mg/dL (<150); VLDL 18 mg/dL (<40)
[2020-08-18 05:01] LABS: SERUM ASSESSMENT Clear
[2020-08-18 05:02] LABS: POTASSIUM 2.9 mmol/L (3.5-5.1)
--- NOTE | 2020-08-18 06:42 | NUR ---
ASSUMED CARE OF PT AFTER REPORT AT 1930. PT A&OX4. VSS. PHYSICAL ASSESSMENT COMPLETED AND CHARTED. PT ON RA. PT TRACING SR ON TELE. PT WITH SUPRAPUBIC CATHETER TO DEPENDENT DRAIN. PT TURNED TO SIDES. NIH CHARTED. PT COMPLAINED OF LEFT LEG PAIN-MED GIVEN PER OCT. POTASSIUM 2.9-ELECTROLYTE PROTOCOL IN PLACE. FALL PRECAUTIONS IN PLACE. CALL LIGHT WITHIN REACH.
[2020-08-18] MEDS ORDERED: ATORVASTATIN CA20 MG PO (09:08)
[2020-08-18] MEDS ORDERED: ADULT LOW DOSE81 MG PO (09:08)
--- NOTE | 2020-08-18 09:32 | NUR ---
Pt discharging back to [facility] today, facility to supervisor picking crew at 2pm. Faxed clinicals and DC orders. Chart copied. Left VM for Pt's nephew. Nurse report number is [phone].
[2020-08-18 11:56] VITALS: BP 160/67
[2020-08-18] MEDS ORDERED: CEFUROXIME500 MG PO (13:45)
[2020-08-18 21:06] LABS: GLYCOHEMOGLOBIN (HGB A1C) 5.6 % (4.8-5.6)
--- NOTE | 2020-08-20 13:52 | CON ---
[address] [address] CONSULTATION Name: NAIN GRANT Room: [address] IN M.R.#: [id number] Admission: 08/16/20 Attend Phys: Louis Hooks, Discharge: 08/18/20 Date of : 52 Report #: [id number] THIS REPORT FOR: cc: Ian King MD, Srinath MD ~ Khosla, Parveen K. MD DATE OF SERVICE: 08/17/2020 HISTORY OF PRESENT ILLNESS: This is a 69-year-old male patient who was evaluated by me because he said he had a stroke about 20 years ago. That paralyzed him on the left side, but he at least partially recovered from that. He was admitted because he became worse. He was outside the window for tPA and it was not sure that he had another stroke and so no tPA was given. He says he feels better. He does not know what made him feel better. He is on Plavix and aspirin has been added at least that is what it looks like. When he came to Emergency Room, his potassium was somewhat low at 3 and hemoglobin was somewhat low at 10.5. His potassium is only marginally improved to 3.1, but he feels back to his normal self. REVIEW OF SYSTEMS: His 14-point review of system is carried out. He apparently has a history of diabetes. He has weakness on the left side. This is the residual weakness from the stroke. He said he is able to walk. He does have a mood disorder. He apparently has a history of Parkinson's disease. He has a history of insomnia. He has a right facial palsy. He does not know whether it is new or old. A 14-point review of system was carried out and it is summarized as above. He has a history of major depressive disorder also. He said his weakness became worse and that is why he came to the hospital, but he is better now, but I am not sure what made him better. The rest of his 14-point review of system was noncontributory. PAST MEDICAL HISTORY: Positive for left hemiplegia. FAMILY HISTORY: Unremarkable. SOCIAL HISTORY: There is a history of smoking. PHYSICAL EXAMINATION: Pretty limited. He is cooperative, but his memory looks poor. His speech is intact. His cranial nerve examination is positive for what looks like a right facial palsy. He says it comes and goes. He is weak on the left side, but he can move. His position sense is intact. Right side, also he is weak, but does better than the left side. There is no meningeal sign. [place] [address] CONSULTATION Name: RUDYNAIN Yuen Room: [address] IN M.R.#: [id number] Admission: 08/16/20 Attend Phys: Louis Hooks, Discharge: 08/18/20 Date of : 52 Report #: [id number] IMPRESSION: Difficult to form in this patient, but I do not know whether his right facial palsy is new or old and whether his symptoms fluctuate or not. Because of that, I think some further workup should be done. I will try to do an MRI in this patient and see if there is a new stroke. If there is a new stroke, then I think we should be aggressive in management. He has improved, but I am not sure why he has improved because there is nothing on the chart, which I can find which has improved significantly. Because of that, possibility of stroke needs to be excluded and I discussed all of it with the patient and more than 50 minutes of time was spent taking care of this patient today and majority was spent counseling and coordinating and reviewing his charts. <ELECTRONICALLY SIGNED> By: Davin Sanchez MD 08/20/20 1352 1505 [id number] Sanchez MD /nt
== END 2020-08-18 14:15 | DRG 640 ==
LOC: M.ERS 16:55 → M.2W 19:58 → M.TBA-ER 19:58 → M.2W 08-17 00:30
PROVIDERS: Emergency Medicine Emergency Medical Services; Internal Medicine; ADMIT Family Medicine; ATTEND Family Medicine
DX: E87.6 Hypokalemia (principal); G92 Toxic encephalopathy; E43 Unspecified severe protein-calorie malnutrition; I69.354 Hemiplegia and hemiparesis following cerebral infarction affecting left non-dominant side; N30.90 Cystitis, unspecified without hematuria; D64.9 Anemia, unspecified; K21.9 Gastro-esophageal reflux disease without esophagitis; N31.2 Flaccid neuropathic bladder, not elsewhere classified; F41.1 Generalized anxiety disorder; F32.9 Major depressive disorder, single episode, unspecified; E11.22 Type 2 diabetes mellitus with diabetic chronic kidney disease; I12.9 Hypertensive chronic kidney disease with stage 1 through stage 4 chronic kidney disease, or unspecified chronic kidney disease; G20 Parkinson's disease; F17.210 Nicotine dependence, cigarettes, uncomplicated; L89.306 Pressure-induced deep tissue damage of unspecified buttock; N18.30 Chronic kidney disease, stage 3 unspecified; G47.00 Insomnia, unspecified; Z20.828 Contact with and (suspected) exposure to other viral communicable diseases; Z79.01 Long term (current) use of anticoagulants; Z79.899 Other long term (current) drug therapy; Z79.84 Long term (current) use of oral hypoglycemic drugs

== ENCOUNTER 2021-01-11 15:20 | Emergency (ER) | payer MEDICARE, MEDICAID ==
[~2021-01-11] VITALS: Ht 170.2 cm; Wt 77.6 kg
[~2021-01-11 15:20] MED LIST changes: +ADULT LOW DOSE81 MG PO; +ATORVASTATIN CA20 MG PO; +BACTRIM DS TAB1 EAC1 PO; +CEFTAZIDIME1 GM IM; +TOVIAZ4 M1 PO; +VITAMIN C500 MG PO
[2021-01-11] MEDS ORDERED: SUPER THERAVIT1 EACH PO (15:31)
[2021-01-11] MEDS ORDERED: MIRTAZAPINE7.5 MG PO (15:32)
[2021-01-11] MEDS ORDERED: GENTAMICIN SULFA FLUSH (15:34)
[2021-01-11 15:47] LABS: ABSOLUTE BASOPHILS 0.1 thou/uL (0.0-0.2); ABSOLUTE EOSINOPHILS 0.2 thou/uL (0.0-0.7); ABSOLUTE MONOCYTES 0.7 thou/uL (0.0-1.2); ABSOLUTE NEUTROPHILS 5.7 thou/uL (1.6-8.1); BASOPHILS 0.8 %; HEMATOCRIT 27.1 % (42.0-52.0); LYMPHOCYTES 23.2 %; MCH 31.1 pg (26.0-34.0); MCHC 33.2 g/dL (28.0-37.0); MCV 93.8 fL (80.0-100.0); MPV 7.4 fl. (7.2-11.1); NUCLEATED RBCS 0 /100WBC; PLATELET COUNT* 282 thou/uL (150-400); RBC 2.89 mil/uL (4.50-6.00); RDW-CV 14.9 % (10.5-14.5); WBC 8.6 thou/uL (4.0-11.0)
[2021-01-11 15:51] LABS: CALCIUM 8.6 mg/dL (8.5-10.1); CREATININE 2.1 mg/dL (0.6-1.3); POTASSIUM 5.2 mmol/L (3.5-5.1)
[2021-01-11 15:56] LABS: ALBUMIN 2.8 g/dL (3.4-5.0); TOTAL BILIRUBIN 0.2 mg/dL (<0.1-1.0); TOTAL PROTEIN 7.6 g/dL (6.4-8.2)
[2021-01-11] MEDS ORDERED: PENICILLIN VK500 M1 PO (16:11)
[2021-01-11] MEDS ORDERED: CIPRO500 M1 PO (16:11)
[2021-01-11] MEDS ORDERED: BACTRIM DS TAB1 EACH PO (16:11)
[2021-01-11] MEDS ORDERED: PROBIOTIC1 EAC2 PO (16:13)
[2021-01-11 18:59] VITALS: BP 112/44
== END 2021-01-11 19:00 | disposition home or self-care (01) ==
LOC: M.ERS 15:20
PROVIDERS: Family Medicine
DX: S90.912A Unspecified superficial injury of left ankle, initial encounter (principal); I12.9 Hypertensive chronic kidney disease with stage 1 through stage 4 chronic kidney disease, or unspecified chronic kidney disease; E11.22 Type 2 diabetes mellitus with diabetic chronic kidney disease; N18.30 Chronic kidney disease, stage 3 unspecified; K21.9 Gastro-esophageal reflux disease without esophagitis; Z86.73 Personal history of transient ischemic attack (TIA), and cerebral infarction without residual deficits; Z87.440 Personal history of urinary (tract) infections; X58.XXXA Exposure to other specified factors, initial encounter; Y93.89 Activity, other specified; Y92.89 Other specified places as the place of occurrence of the external cause; Y99.8 Other external cause status